=== PATIENT | female | born 1935 | race Two or more races ===

== ENCOUNTER 2018-02-10 12:18 | Emergency (ER) | payer MEDICARE, MEDICAID ==
[~2018-02-10] VITALS: Ht 165.1 cm; Wt 64.9 kg
[~2018-02-10 12:18] MED LIST: FURO20TA; LEVO100T81; MEGE40TA15; OMEP20TA; OXYB5TAB61; SIMV-13; [UNRECOGNIZED DRUG - CODE]
[2018-02-10] MEDS ORDERED: SODIUM CHLORIDE 0.9% 500 ML IV ONE (15:50)
[2018-02-10 16:27] LABS: Basophils # (auto) 0 uL; Basophils % (auto) 0.5 % (0.0-2.0); Eosinophils # (auto) 0.1 uL; Eosinophils % (auto) 0.8 % (0.0-7.0); Hematocrit 32.3 % (36.0-46.0); Hemoglobin 10.6 g/dL (12.2-16.2); Lymphocytes # (auto) 1.9 uL; Lymphocytes % (auto) 21.7 % (10.0-50.0); Mean Corpuscular Hgb Conc. 32.9 g/dL (32.0-36.0); Mean Corpuscular Volume 100.3 fL (80.0-100.0); Monocytes # (auto) 0.7 uL; Monocytes % (auto) 7.8 % (0.0-12.0); Neutrophils % (auto) 69.2 % (37.0-80.0); Platelet Count (auto) 227 10^3/uL (140-450); Red Blood Cells 3.22 10^6/uL (4.0-5.20); Red Cell Distribution Width 14.6 % (11.8-14.3); White Blood Cell 8.7 10^3/uL (4.4-10.8)
[2018-02-10 16:57] LABS: Potassium 3.7 mmol/L (3.5-5.1)
[2018-02-10 16:58] LABS: BUN/Creatinine Ratio 29.6
[2018-02-10 16:59] LABS: Albumin 3.2 g/dL (3.4-5.0); Bilirubin, Total 0.3 mg/dL (0.2-1.0); Calcium 8.8 mg/dL (8.5-10.1); Total Protein 8.5 g/dL (6.4-8.2)
[2018-02-10 17:10] LABS: Urine Bacteria MANY /hpf (None Seen); Urine Blood 1+ /uL (Negative); Urine Mucus FEW (None Seen); Urine Specific Gravity 1.018 (1.001-1.035); Urine WBC 63 /hpf (0 - 5)
[2018-02-10] MEDS ORDERED: cefTRIAXone 1GM/50ML D5W 50 ML IV ONE (18:30)
[2018-02-10 18:41] VITALS: BP 135/73
== END 2018-02-10 19:50 | disposition home or self-care (01) ==
LOC: ER 12:18
DX: N39.0 Urinary tract infection, site not specified (principal); K21.9 Gastro-esophageal reflux disease without esophagitis; E78.5 Hyperlipidemia, unspecified; I10 Essential (primary) hypertension; E07.9 Disorder of thyroid, unspecified; Z90.710 Acquired absence of both cervix and uterus
CPT/HCPCS: 36415; 51702; 80053; 81001; 85025; 93005; 94761; 99285; J7040

== ENCOUNTER 2020-10-21 19:32 | Emergency (ER) | payer MEDICARE, MEDICAID ==
[~2020-10-21] VITALS: Ht 160 cm; Wt 61.2 kg
[~2020-10-21 19:32] MED LIST changes: +FURO1TAB33; -FURO20TA; -MEGE40TA15; +MEGE40TA4
[2020-10-21 19:35] VITALS: BP 95/59
== END 2020-10-21 23:20 | disposition left against medical advice (07) ==
LOC: ER 19:34
DX: K94.23 Gastrostomy malfunction (principal); Z53.21 Procedure and treatment not carried out due to patient leaving prior to being seen by health care provider

== ENCOUNTER 2021-07-15 17:40 | Emergency (ER) | payer MEDICARE, MEDICAID ==
[~2021-07-15] VITALS: Ht 160 cm; Wt 63.5 kg
[2021-07-15 19:06] LABS: Alanine Aminotransferase 10 U/L (13-56); Anion Gap 8 (5-15); Aspartate Aminotransferase 30 U/L (15-37); BUN/Creatinine Ratio 31.5; Basophils # (auto) 0 10 ^3/uL (0-0.2); Basophils % (auto) 0.3 % (0.0-2.0); Blood Urea Nitrogen 29 mg/dL (7-18); Carbon Dioxide 25 mmol/L (21-32); Chloride 101 mmol/L (98-107); Eosinophils # (auto) 0.1 10 ^3/uL (0-0.8); Eosinophils % (auto) 1.3 % (0.0-7.0); GFR African American 75 mL/min; GFR Non-African American 62 mL/min; Glucose 108 mg/dL (74-106); Hematocrit 33.7 % (36.0-46.0); Hemoglobin 11.4 g/dL (12.2-16.2); Lymphocytes # (auto) 1.1 10 ^3/uL (0.4-5.4); Lymphocytes % (auto) 14.4 % (10.0-50.0); Mean Corpuscular Hemoglobin 32.6 pg (28.0-32.0); Mean Corpuscular Volume 95.9 fL (80.0-100.0); Monocytes # (auto) 0.6 10 ^3/uL (0-1.3); Monocytes % (auto) 7.5 % (0.0-12.0); Neutrophils # (auto) 5.6 10 ^3/uL (1.6-8.6); Neutrophils % (auto) 76.5 % (37.0-80.0); Nucleated Red Blood Cells % 0.1 %; Potassium 4.3 mmol/L (3.5-5.1); Red Blood Cells 3.51 10^6/uL (4.0-5.20); Red Cell Distribution Width 15.6 % (11.8-14.3); Sodium 134 mmol/L (136-145); White Blood Cell 7.3 10^3/uL (4.4-10.8)
[2021-07-15 19:08] LABS: Alkaline Phosphatase 146 U/L (45-117); Bilirubin, Total 0.4 mg/dL (0.2-1.0); Total Protein 7.9 g/dL (6.4-8.2)
[2021-07-15] MEDS ORDERED: LABETALOL HCL 5 MG/ML 4ML SYRINGE IV ONE (20:00)
[2021-07-15 22:00] VITALS: BP 152/70
[2021-07-15] MEDS ORDERED: cefTRIAXone 1GM/50ML D5W 50 ML IV ONE (22:45)
[2021-07-15] MEDS ORDERED: CEPH-322 PO (22:45)
== END 2021-07-15 23:34 | disposition home or self-care (01) ==
LOC: EDBD 17:40 → ER 17:40
DX: R55 Syncope and collapse (principal); I95.9 Hypotension, unspecified; N39.0 Urinary tract infection, site not specified
CPT/HCPCS: 36415; 71045; 80053; 84484; 85025; 93005; 96365

== ENCOUNTER 2022-01-30 12:34 | Inpatient (IN) | payer MEDICARE, MEDICAID ==
[~2022-01-30] VITALS: Ht 160 cm; Wt 62.8 kg
[~2022-01-30 12:34] MED LIST changes: +CEPH-322 PO; -FURO1TAB33; +FURO1TAB33 PO; -LEVO100T81; +LEVO100T81 PO
[2022-01-30] MEDS ORDERED: SODIUM CHLORIDE 0.9% 1,000 ML IV ONE (13:30)
[2022-01-30 14:15] LABS: Basophils # (auto) 0 10 ^3/uL (0-0.2); Basophils % (auto) 0.3 % (0.0-2.0); Eosinophils # (auto) 0.1 10 ^3/uL (0-0.8); Eosinophils % (auto) 0.8 % (0.0-7.0); Hemoglobin 9.3 g/dL (12.2-16.2); Lymphocytes # (auto) 1.7 10 ^3/uL (0.4-5.4); Lymphocytes % (auto) 23.3 % (10.0-50.0); Mean Corpuscular Hemoglobin 31.1 pg (28.0-32.0); Mean Corpuscular Hgb Conc. 33.3 g/dL (32.0-36.0); Mean Corpuscular Volume 93.4 fL (80.0-100.0); Monocytes # (auto) 1.1 10 ^3/uL (0-1.3); Monocytes % (auto) 15.2 % (0.0-12.0); Neutrophils # (auto) 4.3 10 ^3/uL (1.6-8.6); Neutrophils % (auto) 60.4 % (37.0-80.0); Nucleated Red Blood Cells % 0.1 %; Red Cell Distribution Width 16.7 % (11.8-14.3); White Blood Cell 7.2 10^3/uL (4.4-10.8)
[2022-01-30 14:34] LABS: Albumin 2.6 g/dL (3.4-5.0); Calcium 8.6 mg/dL (8.5-10.1); Magnesium 3.1 mg/dL (1.6-2.6); Potassium 4.9 mmol/L (3.5-5.1)
[2022-01-30 14:42] LABS: BUN/Creatinine Ratio 39.7; Bilirubin, Total 0.6 mg/dL (0.2-1.0); Total Protein 7.5 g/dL (6.4-8.2)
[2022-01-30 14:47] LABS: INR 0.97 (0.9-1.15); Partial Thromboplastin Time 38.7 sec (24.6-33.4)
[2022-01-30 18:54] LABS: Urine Bacteria NONE SEEN /hpf (None Seen); Urine WBC 2108 /hpf (0 - 5); Urine WBC Clumps PRESENT /hpf (None Seen)
[2022-01-30 18:57] LABS: Urine Blood 2+ /uL (Negative)
[2022-01-30] MEDS ORDERED: PIPERACILLIN-TAZOB 3.375GM 100 ML IV ONE (19:15)
[2022-01-30] MEDS ORDERED: cefTRIAXone 1GM/50ML D5W 50 ML IV ONE (21:00)
[2022-01-30] MEDS ORDERED: Glucerna 1.2 Cal 1Liter BOTTLE GT SCH (21:00)
[2022-01-30] MEDS ORDERED: MORPHINE SULFATE INJ 2 MG/ml SYRG IV PRN (21:15)
[2022-01-30 22:35] LABS: Cholesterol 118 mg/dL (< 200)
[2022-01-30 22:37] LABS: HDL Cholesterol 45 mg/dL (40-59); LDL Cholesterol 61 mg/dL (< 100); Triglycerides 101 mg/dL (< 150)
[2022-01-31] MEDS: SODIUM CHLORIDE 0.9% 1,000 ML IV SCH ×2 (00:18→13:50)
[2022-01-31 06:12] LABS: Basophils # (auto) 0 10 ^3/uL (0-0.2); Basophils % (auto) 0.3 % (0.0-2.0); Eosinophils # (auto) 0 10 ^3/uL (0-0.8); Eosinophils % (auto) 0.2 % (0.0-7.0); Hematocrit 31.4 % (36.0-46.0); Hemoglobin 10.6 g/dL (12.2-16.2); Lymphocytes # (auto) 1.5 10 ^3/uL (0.4-5.4); Lymphocytes % (auto) 24.7 % (10.0-50.0); Mean Corpuscular Hemoglobin 32.2 pg (28.0-32.0); Mean Corpuscular Hgb Conc. 33.7 g/dL (32.0-36.0); Mean Corpuscular Volume 95.7 fL (80.0-100.0); Monocytes % (auto) 17.4 % (0.0-12.0); Neutrophils # (auto) 3.4 10 ^3/uL (1.6-8.6); Neutrophils % (auto) 57.4 % (37.0-80.0); Nucleated Red Blood Cells % 0.1 %; Red Blood Cells 3.28 10^6/uL (4.0-5.20); Red Cell Distribution Width 16.8 % (11.8-14.3)
[2022-01-31] MEDS ORDERED: cefTRIAXone 1GM/50ML D5W 50 ML IV SCH (09:00)
[2022-01-31] MEDS ORDERED: ERTAPENEM SOD INJ 1 GM in SODIUM CHL 0.9% 50 ML IV ONE (13:45)
[2022-01-31] MEDS ORDERED: ASPI-325 PO (18:56)
[2022-01-31] MEDS ORDERED: CARB25TA79 PO (18:56)
[2022-01-31] MEDS ORDERED: MELO1TAB56 PO (18:56)
[2022-01-31] MEDS ORDERED: LINA145C PO (18:56)
[2022-01-31] MEDS ORDERED: ROPI0.254 PO (18:56)
[2022-01-31] MEDS ORDERED: MET25T PO (18:56)
[2022-01-31] MEDS ORDERED: PANT40TA57 PO (18:56)
[2022-01-31] MEDS ORDERED: VANCOMYCIN PER PHARMACY 0 MG IV SCH (20:00)
[2022-01-31] MEDS ORDERED: VANCOMYCIN 1GM/250ML 250 ML IV ONE (20:15)
[2022-01-31 22:00] VITALS: BP 146/71
[2022-02-01 05:00] VITALS: BP 116/60
[2022-02-01 05:59] LABS: Basophils # (auto) 0 10 ^3/uL (0-0.2); Basophils % (auto) 0.6 % (0.0-2.0); Eosinophils # (auto) 0.1 10 ^3/uL (0-0.8); Eosinophils % (auto) 2.4 % (0.0-7.0); Hematocrit 25.5 % (36.0-46.0); Hemoglobin 8.7 g/dL (12.2-16.2); Lymphocytes # (auto) 0.8 10 ^3/uL (0.4-5.4); Lymphocytes % (auto) 16.6 % (10.0-50.0); Monocytes # (auto) 0.6 10 ^3/uL (0-1.3); Monocytes % (auto) 12.9 % (0.0-12.0); Neutrophils # (auto) 3.2 10 ^3/uL (1.6-8.6); Neutrophils % (auto) 67.5 % (37.0-80.0); Nucleated Red Blood Cells % 0.1 %; Red Blood Cells 2.71 10^6/uL (4.0-5.20); Red Cell Distribution Width 17.2 % (11.8-14.3); White Blood Cell 4.8 10^3/uL (4.4-10.8)
[2022-02-01 06:03] LABS: Albumin 2.2 g/dL (3.4-5.0); Calcium 8.7 mg/dL (8.5-10.1); Potassium 3.4 mmol/L (3.5-5.1)
[2022-02-01 06:08] LABS: Bilirubin, Total 0.4 mg/dL (0.2-1.0); Total Protein 7.2 g/dL (6.4-8.2)
[2022-02-01] MEDS: LEVOTHYROXINE SODIUM 100 MCG TAB PO SCH (06:37)
[2022-02-01] MEDS: SODIUM CHLORIDE 0.9% 1,000 ML IV SCH ×2 (06:41→23:00)
[2022-02-01 09:22] VITALS: BP 120/62
[2022-02-01] MEDS: ERTAPENEM SOD INJ 0.5 GM in SODIUM CHL 0.9% 50 ML IV SCH (10:00)
[2022-02-01] MEDS: FAMOTIDINE (10MG/ML) 2ML VL IV SCH (10:03)
[2022-02-01] MEDS ORDERED: POTASSIUM EFFERVESENT TAB 25 MEQ GT ONE (12:00)
[2022-02-01 13:00] VITALS: BP 109/66
[2022-02-01 13:14] LABS: Hematocrit 26.4 % (36.0-46.0); Hemoglobin 8.9 g/dL (12.2-16.2)
[2022-02-01] MEDS: VANCOMYCIN 1GM/250ML 250 ML IV SCH (15:39)
[2022-02-01 17:52] VITALS: BP 134/73
[2022-02-01 18:04] LABS: Hematocrit 26.2 % (36.0-46.0); Hemoglobin 8.8 g/dL (12.2-16.2)
[2022-02-01 22:44] VITALS: BP 114/51
[2022-02-01 22:47] VITALS: BP 114/51
[2022-02-01 23:42] LABS: Hematocrit 25.5 % (36.0-46.0); Hemoglobin 8.6 g/dL (12.2-16.2)
[2022-02-02 05:30] VITALS: BP 141/59
[2022-02-02] MEDS: LEVOTHYROXINE SODIUM 100 MCG TAB PO SCH (06:08)
[2022-02-02] MEDS: FAMOTIDINE (10MG/ML) 2ML VL IV SCH (08:16)
[2022-02-02] MEDS: VANCOMYCIN 1GM/250ML 250 ML IV SCH (08:16)
[2022-02-02 09:00] VITALS: BP 151/68
[2022-02-02] MEDS: ERTAPENEM SOD INJ 0.5 GM in SODIUM CHL 0.9% 50 ML IV SCH (13:00)
[2022-02-02 13:13] VITALS: BP 162/77
[2022-02-02] MEDS ORDERED: ACETAMINOPHEN 325 MG TAB PO PRN (16:45)
[2022-02-02 17:55] VITALS: BP 152/60
[2022-02-02] MEDS: SODIUM CHLORIDE 0.9% 1,000 ML IV SCH (19:35)
[2022-02-02 22:15] VITALS: BP 127/98
[2022-02-03] MEDS: VANCOMYCIN 1GM/250ML 250 ML IV SCH (03:00)
[2022-02-03 05:56] VITALS: BP 144/69
[2022-02-03] MEDS: LEVOTHYROXINE SODIUM 100 MCG TAB PO SCH (06:25)
[2022-02-03 07:01] LABS: Basophils # (auto) 0.1 10 ^3/uL (0-0.2); Basophils % (auto) 1.1 % (0.0-2.0); Eosinophils # (auto) 0.3 10 ^3/uL (0-0.8); Eosinophils % (auto) 5.3 % (0.0-7.0); Hematocrit 29.4 % (36.0-46.0); Hemoglobin 9.8 g/dL (12.2-16.2); Lymphocytes # (auto) 1.3 10 ^3/uL (0.4-5.4); Lymphocytes % (auto) 27.7 % (10.0-50.0); Mean Corpuscular Hemoglobin 31.8 pg (28.0-32.0); Mean Corpuscular Hgb Conc. 33.5 g/dL (32.0-36.0); Monocytes # (auto) 0.7 10 ^3/uL (0-1.3); Monocytes % (auto) 13.7 % (0.0-12.0); Neutrophils # (auto) 2.5 10 ^3/uL (1.6-8.6); Neutrophils % (auto) 52.2 % (37.0-80.0); Nucleated Red Blood Cells % 0.6 %; Red Blood Cells 3.09 10^6/uL (4.0-5.20); Red Cell Distribution Width 16.8 % (11.8-14.3); White Blood Cell 4.8 10^3/uL (4.4-10.8)
[2022-02-03 07:13] LABS: Albumin 2.5 g/dL (3.4-5.0); BUN/Creatinine Ratio 31.2; Potassium 4.2 mmol/L (3.5-5.1)
[2022-02-03 07:21] LABS: Bilirubin, Total 0.5 mg/dL (0.2-1.0); Total Protein 6.9 g/dL (6.4-8.2)
[2022-02-03] MEDS: FAMOTIDINE (10MG/ML) 2ML VL IV SCH (09:37)
[2022-02-03] MEDS: SODIUM CHLORIDE 0.9% 1,000 ML IV SCH (09:41)
[2022-02-03] MEDS ORDERED: Glucerna 1.2 Cal 1Liter BOTTLE GT SCH (10:00)
[2022-02-03] MEDS: CIPROFLOXACIN 400MG/200ML 200 ML IV SCH ×2 (10:00→21:31)
[2022-02-03] MEDS: FREE WATER GT SCH ×3 (12:34→23:37)
[2022-02-03 13:00] VITALS: BP 138/83
[2022-02-03] MEDS: CARBIDOPA W LEVODOPA 25/100mg TABLET PO SCH ×2 (14:55→21:31)
[2022-02-03 17:00] VITALS: BP 148/78
[2022-02-03 22:00] VITALS: BP 151/84
[2022-02-04 05:00] VITALS: BP 135/77
[2022-02-04] MEDS: CARBIDOPA W LEVODOPA 25/100mg TABLET PO SCH (06:37)
[2022-02-04] MEDS: FREE WATER GT SCH ×2 (06:38→12:46)
[2022-02-04] MEDS: LEVOTHYROXINE SODIUM 100 MCG TAB PO SCH (06:38)
[2022-02-04 07:29] LABS: Hematocrit 28.8 % (36.0-46.0); Hemoglobin 9.7 g/dL (12.2-16.2); Mean Corpuscular Hemoglobin 31.9 pg (28.0-32.0); Mean Corpuscular Hgb Conc. 33.6 g/dL (32.0-36.0); Mean Corpuscular Volume 94.8 fL (80.0-100.0); Red Blood Cells 3.04 10^6/uL (4.0-5.20); Red Cell Distribution Width 16.9 % (11.8-14.3); White Blood Cell 5.7 10^3/uL (4.4-10.8)
[2022-02-04 07:35] LABS: Basophils % (manual) 0 (0.0-2.0); Blast Cells 0; Myelocytes % 0; Promyelocytes % 0; Reactive Lymphocytes 0
[2022-02-04 08:19] LABS: BUN/Creatinine Ratio 35.3; Calcium 8.8 mg/dL (8.5-10.1); Potassium 3.9 mmol/L (3.5-5.1)
[2022-02-04 08:47] LABS: Band Neutrophils % (manual) 14; Eosinophils % (manual) 3 (0-7); Lymphocytes % (manual) 21 (10.0-50.0); Metamyelocytes % 3; Monocytes % (manual) 10 (0-12)
[2022-02-04 09:00] VITALS: BP 136/58
[2022-02-04] MEDS: CIPROFLOXACIN 400MG/200ML 200 ML IV SCH (09:32)
[2022-02-04] MEDS: FAMOTIDINE (10MG/ML) 2ML VL IV SCH (09:32)
[2022-02-04] MEDS ORDERED: CIPR500S2 PO (10:21)
[2022-02-04 11:27] VITALS: BP 110/65
== END 2022-02-04 13:34 | disposition home health service (06) | DRG 871 ==
LOC: ER 12:34 → OVERFLOW 21:03 → CENTRAL 01-31 18:29
PROVIDERS: ADMIT Registered Nurse; ATTEND Internal Medicine
DX: A41.52 Sepsis due to Pseudomonas (principal); E43 Unspecified severe protein-calorie malnutrition; N17.0 Acute kidney failure with tubular necrosis; N13.6 Pyonephrosis; E78.5 Hyperlipidemia, unspecified; E27.9 Disorder of adrenal gland, unspecified; F02.80 Dementia in other diseases classified elsewhere, unspecified severity, without behavioral disturbance, psychotic disturbance, mood disturbance, and anxiety; G30.9 Alzheimer's disease, unspecified; I10 Essential (primary) hypertension; E66.01 Morbid (severe) obesity due to excess calories; G20 Parkinson's disease; E03.9 Hypothyroidism, unspecified; R55 Syncope and collapse; Z20.822 Contact with and (suspected) exposure to COVID-19; E87.6 Hypokalemia; D63.8 Anemia in other chronic diseases classified elsewhere; K21.9 Gastro-esophageal reflux disease without esophagitis; N31.9 Neuromuscular dysfunction of bladder, unspecified; N28.89 Other specified disorders of kidney and ureter; Z90.710 Acquired absence of both cervix and uterus; Z93.1 Gastrostomy status; Z68.23 Body mass index [BMI] 23.0-23.9, adult; Z79.82 Long term (current) use of aspirin; Z79.899 Other long term (current) drug therapy; Z87.440 Personal history of urinary (tract) infections
CPT/HCPCS: 36415; 71045; 71250; 74176; 76775; 80048; 80053; 80061; 80202; 81001; 83036; 83605; 83735; 83880; 84443; 84484; 85007; 85014; 85018; 85025; 85027; 85610; 85730; 87040; 87077; 87086; 87088; 87186; 87426; 87804; 96365; 96367; G0378; J0696; J1335; J2543; J3490

== ENCOUNTER 2022-03-14 12:00 | Inpatient (IN) | payer MEDICARE, MEDICAID ==
[~2022-03-14] VITALS: Ht 162.6 cm; Wt 73.2 kg
[~2022-03-14 12:00] MED LIST changes: +ASPI-325 PO; +CARB25TA79 PO; +CIPR500S2 PO; +LINA145C PO; +MELO1TAB56 PO; +MET25T PO; +PANT40TA57 PO; +ROPI0.254 PO
[2022-03-14 13:29] LABS: Basophils # (auto) 0 10 ^3/uL (0-0.2); Basophils % (auto) 0.3 % (0.0-2.0); Eosinophils # (auto) 0 10 ^3/uL (0-0.8); Eosinophils % (auto) 0.3 % (0.0-7.0); Hematocrit 36.5 % (36.0-46.0); Hemoglobin 11.9 g/dL (12.2-16.2); Lymphocytes % (auto) 14.6 % (10.0-50.0); Mean Corpuscular Hgb Conc. 32.7 g/dL (32.0-36.0); Mean Corpuscular Volume 94.8 fL (80.0-100.0); Monocytes # (auto) 1.2 10 ^3/uL (0-1.3); Monocytes % (auto) 8.6 % (0.0-12.0); Neutrophils # (auto) 10.6 10 ^3/uL (1.6-8.6); Neutrophils % (auto) 76.2 % (37.0-80.0); Nucleated Red Blood Cells % 0.1 %; Red Blood Cells 3.85 10^6/uL (4.0-5.20); Red Cell Distribution Width 19.9 % (11.8-14.3); White Blood Cell 13.9 10^3/uL (4.4-10.8)
[2022-03-14 14:11] LABS: Albumin 2.8 g/dL (3.4-5.0); Calcium 8.7 mg/dL (8.5-10.1); Potassium 4.8 mmol/L (3.5-5.1)
[2022-03-14 14:13] LABS: Lactic Acid w/Reflex 2.2 mmol/L (0.4-2.0)
[2022-03-14 14:14] LABS: BUN/Creatinine Ratio 43.9; Bilirubin, Total 0.7 mg/dL (0.2-1.0); Total Protein 7.4 g/dL (6.4-8.2)
[2022-03-14] MEDS ORDERED: cefTRIAXone 1GM/50ML D5W 50 ML IV ONE (14:15)
[2022-03-14] MEDS ORDERED: SODIUM CHLORIDE 0.9% 1,000 ML IV ONE (17:30)
[2022-03-14] MEDS ORDERED: ONDANSETRON HCL 4 MG/2 ML VIAL IV PRN (17:30)
[2022-03-14] MEDS ORDERED: levoFLOXacin 500MG 100 ML IV ONE (17:49)
[2022-03-14] MEDS: SODIUM CHLORIDE 0.9% 1,000 ML IV SCH (21:10)
[2022-03-15 00:25] LABS: Urine Bacteria FEW /hpf (None Seen); Urine Blood TRACE /uL (Negative); Urine Mucus FEW (None Seen); Urine Specific Gravity 1.018 (1.001-1.035); Urine WBC 274 /hpf (0 - 5); Urine WBC Clumps PRESENT /hpf (None Seen)
[2022-03-15 07:54] LABS: Basophils # (auto) 0 10 ^3/uL (0-0.2); Basophils % (auto) 0.3 % (0.0-2.0); Eosinophils # (auto) 0 10 ^3/uL (0-0.8); Eosinophils % (auto) 0.3 % (0.0-7.0); Hematocrit 31.5 % (36.0-46.0); Hemoglobin 10.3 g/dL (12.2-16.2); Lymphocytes # (auto) 1.4 10 ^3/uL (0.4-5.4); Lymphocytes % (auto) 10.3 % (10.0-50.0); Mean Corpuscular Hemoglobin 30.8 pg (28.0-32.0); Mean Corpuscular Hgb Conc. 32.7 g/dL (32.0-36.0); Mean Corpuscular Volume 94.2 fL (80.0-100.0); Monocytes # (auto) 0.8 10 ^3/uL (0-1.3); Monocytes % (auto) 6.2 % (0.0-12.0); Neutrophils # (auto) 11.2 10 ^3/uL (1.6-8.6); Neutrophils % (auto) 82.9 % (37.0-80.0); Red Blood Cells 3.35 10^6/uL (4.0-5.20); Red Cell Distribution Width 19.8 % (11.8-14.3); White Blood Cell 13.6 10^3/uL (4.4-10.8)
[2022-03-15 08:15] LABS: Albumin 2.4 g/dL (3.4-5.0); Calcium 8.6 mg/dL (8.5-10.1); Potassium 4.6 mmol/L (3.5-5.1)
[2022-03-15 08:19] LABS: BUN/Creatinine Ratio 48.8; Bilirubin, Total 0.6 mg/dL (0.2-1.0); Total Protein 6.9 g/dL (6.4-8.2)
[2022-03-15] MEDS: PANTOPRAZOLE 40 MG/10 ML VIAL INJ IV SCH (10:00)
[2022-03-15] MEDS: ENOXAPARIN SOD 40 MG/0.4 ML SYRINGE SC SCH (10:15)
[2022-03-15] MEDS: SODIUM CHLORIDE 0.9% 1,000 ML IV SCH ×2 (12:22→22:06)
[2022-03-15] MEDS ORDERED: NYSTATIN (MOUTH-THROAT) 500,000 UNITS/5 ML SUSP MT ONE (15:00)
[2022-03-15] MEDS: Jevity 1.2 Cal/Fiber 1 Liter GT SCH (18:00)
[2022-03-15] MEDS ORDERED: levoFLOXacin 250MG 50 ML IV SCH (18:00)
[2022-03-15 18:46] VITALS: BP 116/63
[2022-03-15] MEDS: PIPERACILLIN-TAZOB 3.375GM 100 ML IV SCH (19:56)
[2022-03-15] MEDS: NYSTATIN (MOUTH-THROAT) 500,000 UNITS/5 ML SUSP MT SCH (19:57)
[2022-03-15 22:00] VITALS: BP 126/65
[2022-03-16] VITALS (7 sets, daily range): BP systolic 106–132; BP diastolic 61–73
[2022-03-16] MEDS: Jevity 1.2 Cal/Fiber 1 Liter GT SCH ×7 (00:32→22:23)
[2022-03-16] MEDS: NYSTATIN (MOUTH-THROAT) 500,000 UNITS/5 ML SUSP MT SCH ×5 (00:32→22:29)
[2022-03-16] MEDS: PIPERACILLIN-TAZOB 3.375GM 100 ML IV SCH ×4 (02:40→17:21)
[2022-03-16 06:27] LABS: BUN/Creatinine Ratio 39.6; Calcium 8.2 mg/dL (8.5-10.1); Potassium 4.3 mmol/L (3.5-5.1)
[2022-03-16 06:57] LABS: Basophils # (auto) 0 10 ^3/uL (0-0.2); Basophils % (auto) 0.3 % (0.0-2.0); Eosinophils # (auto) 0.2 10 ^3/uL (0-0.8); Eosinophils % (auto) 3.1 % (0.0-7.0); Hematocrit 29.9 % (36.0-46.0); Hemoglobin 9.6 g/dL (12.2-16.2); Lymphocytes # (auto) 1.4 10 ^3/uL (0.4-5.4); Lymphocytes % (auto) 17.7 % (10.0-50.0); Mean Corpuscular Hemoglobin 30.5 pg (28.0-32.0); Mean Corpuscular Volume 95.2 fL (80.0-100.0); Monocytes # (auto) 0.6 10 ^3/uL (0-1.3); Monocytes % (auto) 7.5 % (0.0-12.0); Neutrophils # (auto) 5.8 10 ^3/uL (1.6-8.6); Neutrophils % (auto) 71.4 % (37.0-80.0); Red Blood Cells 3.14 10^6/uL (4.0-5.20); Red Cell Distribution Width 19.4 % (11.8-14.3); White Blood Cell 8.1 10^3/uL (4.4-10.8)
[2022-03-16] MEDS: PANTOPRAZOLE 40 MG/10 ML VIAL INJ IV SCH (09:42)
[2022-03-16] MEDS: ENOXAPARIN SOD 40 MG/0.4 ML SYRINGE SC SCH (09:42)
[2022-03-16] MEDS: SODIUM CHLORIDE 0.9% 1,000 ML IV SCH ×2 (12:24→17:20)
[2022-03-16 19:10] LABS: Hematocrit 30.9 % (36.0-46.0); Hemoglobin 9.9 g/dL (12.2-16.2); Mean Corpuscular Hemoglobin 30.9 pg (28.0-32.0); Mean Corpuscular Hgb Conc. 32.2 g/dL (32.0-36.0); Mean Corpuscular Volume 96.2 fL (80.0-100.0); Red Blood Cells 3.21 10^6/uL (4.0-5.20); Red Cell Distribution Width 19.3 % (11.8-14.3); White Blood Cell 6.5 10^3/uL (4.4-10.8)
[2022-03-16 19:15] LABS: Basophils % (manual) 0 (0.0-2.0); Blast Cells 0; Metamyelocytes % 0; Myelocytes % 0; Promyelocytes % 0
[2022-03-16 19:24] LABS: INR 0.92 (0.9-1.15); Partial Thromboplastin Time 39.9 sec (24.6-33.4)
[2022-03-16 21:05] LABS: Band Neutrophils % (manual) 32; Eosinophils % (manual) 5 (0-7); Lymphocytes % (manual) 18 (10.0-50.0); Monocytes % (manual) 3 (0-12); Reactive Lymphocytes 1
[2022-03-17] VITALS (7 sets, daily range): BP systolic 120–162; BP diastolic 61–88
[2022-03-17] MEDS: Jevity 1.2 Cal/Fiber 1 Liter GT SCH ×6 (02:13→22:03)
[2022-03-17] MEDS: SODIUM CHLORIDE 0.9% 1,000 ML IV SCH ×2 (03:00→13:40)
[2022-03-17] MEDS: NYSTATIN (MOUTH-THROAT) 500,000 UNITS/5 ML SUSP MT SCH ×4 (05:38→22:04)
[2022-03-17] MEDS: PIPERACILLIN-TAZOB 3.375GM 100 ML IV SCH ×4 (05:39→18:52)
[2022-03-17 06:44] LABS: Basophils # (auto) 0.1 10 ^3/uL (0-0.2); Eosinophils # (auto) 0.4 10 ^3/uL (0-0.8); Eosinophils % (auto) 7.8 % (0.0-7.0); Hematocrit 29.8 % (36.0-46.0); Hemoglobin 9.6 g/dL (12.2-16.2); Lymphocytes # (auto) 1.2 10 ^3/uL (0.4-5.4); Mean Corpuscular Hemoglobin 30.6 pg (28.0-32.0); Mean Corpuscular Hgb Conc. 32.2 g/dL (32.0-36.0); Mean Corpuscular Volume 95.1 fL (80.0-100.0); Monocytes # (auto) 0.6 10 ^3/uL (0-1.3); Monocytes % (auto) 11.2 % (0.0-12.0); Neutrophils # (auto) 3.1 10 ^3/uL (1.6-8.6); Red Blood Cells 3.13 10^6/uL (4.0-5.20); Red Cell Distribution Width 19.5 % (11.8-14.3); White Blood Cell 5.4 10^3/uL (4.4-10.8)
[2022-03-17 07:02] LABS: BUN/Creatinine Ratio 34.2; Calcium 8.2 mg/dL (8.5-10.1); Potassium 4.4 mmol/L (3.5-5.1)
[2022-03-17] MEDS ORDERED: PANTOPRAZOLE 40 MG TAB PO ONE (15:45)
[2022-03-17] MEDS: CARBIDOPA W LEVODOPA 25/250mg TABLET GT SCH ×2 (17:12→22:04)
[2022-03-18] MEDS: PIPERACILLIN-TAZOB 3.375GM 100 ML IV SCH ×4 (00:26→19:03)
[2022-03-18] MEDS: Jevity 1.2 Cal/Fiber 1 Liter GT SCH ×6 (02:09→23:00)
[2022-03-18 05:00] VITALS: BP 115/75
[2022-03-18 05:42] LABS: Basophils # (auto) 0.1 10 ^3/uL (0-0.2); Basophils % (auto) 0.8 % (0.0-2.0); Eosinophils # (auto) 0.3 10 ^3/uL (0-0.8); Eosinophils % (auto) 4.4 % (0.0-7.0); Hematocrit 31.5 % (36.0-46.0); Hemoglobin 10.5 g/dL (12.2-16.2); Lymphocytes # (auto) 1.8 10 ^3/uL (0.4-5.4); Lymphocytes % (auto) 23.9 % (10.0-50.0); Mean Corpuscular Hemoglobin 31.6 pg (28.0-32.0); Mean Corpuscular Hgb Conc. 33.2 g/dL (32.0-36.0); Mean Corpuscular Volume 95.1 fL (80.0-100.0); Monocytes # (auto) 0.9 10 ^3/uL (0-1.3); Monocytes % (auto) 11.5 % (0.0-12.0); Neutrophils # (auto) 4.5 10 ^3/uL (1.6-8.6); Neutrophils % (auto) 59.4 % (37.0-80.0); Red Blood Cells 3.31 10^6/uL (4.0-5.20); Red Cell Distribution Width 19.1 % (11.8-14.3); White Blood Cell 7.5 10^3/uL (4.4-10.8)
[2022-03-18] MEDS: NYSTATIN (MOUTH-THROAT) 500,000 UNITS/5 ML SUSP MT SCH ×4 (06:02→23:00)
[2022-03-18] MEDS: CARBIDOPA W LEVODOPA 25/250mg TABLET GT SCH ×3 (06:03→23:00)
[2022-03-18 06:08] LABS: Calcium 8.6 mg/dL (8.5-10.1); Potassium 4.6 mmol/L (3.5-5.1)
[2022-03-18 06:10] LABS: BUN/Creatinine Ratio 44.4
[2022-03-18] MEDS: LEVOTHYROXINE SODIUM 100 MCG TAB PO SCH (06:36)
[2022-03-18 08:00] VITALS: BP 136/80
[2022-03-18 09:09] VITALS: BP 136/80
[2022-03-18] MEDS: PANTOPRAZOLE 40 MG TAB PO SCH (09:41)
[2022-03-18] MEDS: ASPirin 81 mg TAB PO SCH (09:41)
[2022-03-18 12:56] VITALS: BP 124/84
[2022-03-18 16:41] VITALS: BP 141/84
[2022-03-18 22:00] VITALS: BP 123/58
[2022-03-19] MEDS: Jevity 1.2 Cal/Fiber 1 Liter GT SCH ×6 (03:18→22:26)
[2022-03-19 05:00] VITALS: BP 144/65
[2022-03-19 05:55] LABS: Hematocrit 34.4 % (36.0-46.0); Mean Corpuscular Hemoglobin 30.4 pg (28.0-32.0); Mean Corpuscular Hgb Conc. 31.9 g/dL (32.0-36.0); Mean Corpuscular Volume 95.5 fL (80.0-100.0); Red Cell Distribution Width 19.7 % (11.8-14.3); White Blood Cell 8.5 10^3/uL (4.4-10.8)
[2022-03-19 06:03] LABS: BUN/Creatinine Ratio 42.3; Calcium 8.8 mg/dL (8.5-10.1); Potassium 4.5 mmol/L (3.5-5.1)
[2022-03-19 06:06] LABS: Basophils % (manual) 0 (0.0-2.0); Blast Cells 0; Myelocytes % 0; Promyelocytes % 0; Reactive Lymphocytes 0
[2022-03-19] MEDS: PIPERACILLIN-TAZOB 3.375GM 100 ML IV SCH ×3 (06:34→13:32)
[2022-03-19] MEDS: CARBIDOPA W LEVODOPA 25/250mg TABLET GT SCH ×3 (06:34→21:51)
[2022-03-19] MEDS: NYSTATIN (MOUTH-THROAT) 500,000 UNITS/5 ML SUSP MT SCH ×4 (06:34→21:51)
[2022-03-19] MEDS: LEVOTHYROXINE SODIUM 100 MCG TAB PO SCH (06:34)
[2022-03-19 08:32] VITALS: BP 95/57
[2022-03-19 09:04] LABS: Band Neutrophils % (manual) 5; Eosinophils % (manual) 10 (0-7); Lymphocytes % (manual) 30 (10.0-50.0); Metamyelocytes % 1; Monocytes % (manual) 4 (0-12)
[2022-03-19] MEDS: ASPirin 81 mg TAB PO SCH (10:22)
[2022-03-19] MEDS: PANTOPRAZOLE 40 MG TAB PO SCH (10:22)
[2022-03-19 12:41] VITALS: BP 113/68
[2022-03-19] MEDS: ERTAPENEM SOD INJ 1 GM in SODIUM CHL 0.9% 50 ML IV SCH (16:15)
[2022-03-19 16:25] VITALS: BP 109/68
[2022-03-19] MEDS: LINEZOLID 600MG/300ML 300 ML IV SCH (21:51)
[2022-03-19 22:00] VITALS: BP 136/77
[2022-03-20] MEDS: Jevity 1.2 Cal/Fiber 1 Liter GT SCH ×4 (02:24→14:00)
[2022-03-20 05:00] VITALS: BP 134/68
[2022-03-20 05:27] LABS: Hematocrit 33.4 % (36.0-46.0); Mean Corpuscular Hemoglobin 31.6 pg (28.0-32.0); Mean Corpuscular Volume 95.7 fL (80.0-100.0); Red Blood Cells 3.49 10^6/uL (4.0-5.20); Red Cell Distribution Width 19.5 % (11.8-14.3)
[2022-03-20 05:39] LABS: BUN/Creatinine Ratio 50.7; Calcium 8.6 mg/dL (8.5-10.1); Potassium 4.8 mmol/L (3.5-5.1)
[2022-03-20] MEDS: CARBIDOPA W LEVODOPA 25/250mg TABLET GT SCH ×2 (06:23→15:05)
[2022-03-20] MEDS: NYSTATIN (MOUTH-THROAT) 500,000 UNITS/5 ML SUSP MT SCH ×2 (06:24→12:00)
[2022-03-20] MEDS: LEVOTHYROXINE SODIUM 100 MCG TAB PO SCH (06:24)
[2022-03-20 06:55] LABS: Basophils % (manual) 0 (0.0-2.0); Blast Cells 0; Myelocytes % 0; Promyelocytes % 0; Reactive Lymphocytes 0
[2022-03-20 08:32] VITALS: BP 99/59
[2022-03-20 09:25] LABS: Band Neutrophils % (manual) 3; Eosinophils % (manual) 8 (0-7); Lymphocytes % (manual) 19 (10.0-50.0); Metamyelocytes % 4; Monocytes % (manual) 9 (0-12)
[2022-03-20] MEDS: ERTAPENEM SOD INJ 1 GM in SODIUM CHL 0.9% 50 ML IV SCH (10:35)
[2022-03-20] MEDS: ASPirin 81 mg TAB PO SCH (10:36)
[2022-03-20] MEDS: LINEZOLID 600MG/300ML 300 ML IV SCH (10:36)
[2022-03-20] MEDS: PANTOPRAZOLE 40 MG TAB PO SCH (10:36)
[2022-03-20 12:32] VITALS: BP 117/71
[2022-03-20] MEDS ORDERED: CEFEPIME 2 GM in SODIUM CHL 0.9% 50 ML IV SCH (13:00)
[2022-03-20] MEDS ORDERED: LINE1TAB6 PO (14:29)
[2022-03-20 15:33] VITALS: BP 117/71
== END 2022-03-20 16:40 | disposition home health service (06) | DRG 871 ==
LOC: ER 12:00 → OVERFLOW 17:34 → WEST WING 03-15 18:47
PROVIDERS: ADMIT Nurse Practitioner Family; ATTEND Nurse Practitioner Acute Care
PROC: 05HA33Z Insertion of Infusion Device into Left Brachial Vein, Percutaneous Approach (ICD-10-PCS; principal; 2022-03-20)
PROC: B54NZZA Ultrasonography of Left Upper Extremity Veins, Guidance (ICD-10-PCS; 2022-03-20)
DX: A41.52 Sepsis due to Pseudomonas (principal); G93.41 Metabolic encephalopathy; B37.0 Candidal stomatitis; D62 Acute posthemorrhagic anemia; E44.1 Mild protein-calorie malnutrition; E87.1 Hypo-osmolality and hyponatremia; J98.11 Atelectasis; Z16.24 Resistance to multiple antibiotics; Z20.822 Contact with and (suspected) exposure to COVID-19; E86.0 Dehydration; R65.20 Severe sepsis without septic shock; E88.09 Other disorders of plasma-protein metabolism, not elsewhere classified; G30.9 Alzheimer's disease, unspecified; E78.5 Hyperlipidemia, unspecified; F02.80 Dementia in other diseases classified elsewhere, unspecified severity, without behavioral disturbance, psychotic disturbance, mood disturbance, and anxiety; G20 Parkinson's disease; I11.0 Hypertensive heart disease with heart failure; I50.9 Heart failure, unspecified; N30.90 Cystitis, unspecified without hematuria; Z87.442 Personal history of urinary calculi; Z90.710 Acquired absence of both cervix and uterus; Z93.1 Gastrostomy status; Z68.21 Body mass index [BMI] 21.0-21.9, adult
CPT/HCPCS: 36415; 71045; 74176; 80048; 80053; 81001; 82270; 83605; 83880; 84484; 85007; 85025; 85027; 85610; 85730; 87040; 87086; 87088; 87186; 87426; 96365; 96367; 96372; 96375; C9113; G0378; J0696; J1335; J1956; J2543

== ENCOUNTER 2022-04-17 18:33 | Emergency (ER) | payer MEDICARE, MEDICAID ==
[~2022-04-17] VITALS: Ht 147.3 cm; Wt 54.0 kg
[~2022-04-17 18:33] MED LIST changes: +LINE1TAB6 PO
[2022-04-17 18:40] VITALS: BP 131/70
== END 2022-04-17 19:58 | disposition home or self-care (01) ==
LOC: ER 18:33
DX: I11.0 Hypertensive heart disease with heart failure (principal); I50.9 Heart failure, unspecified; K21.9 Gastro-esophageal reflux disease without esophagitis; E78.5 Hyperlipidemia, unspecified; Z45.2 Encounter for adjustment and management of vascular access device

== ENCOUNTER 2022-04-18 16:14 | Inpatient (IN) | payer MEDICARE, MEDICAID ==
[~2022-04-18] VITALS: Ht 165.1 cm; Wt 62.3 kg
[2022-04-18] MEDS ORDERED: SODIUM CHLORIDE 0.9% 1,000 ML IV ONE (16:30)
[2022-04-18 17:15] LABS: Basophils # (auto) 0 10 ^3/uL (0-0.2); Basophils % (auto) 0.2 % (0.0-2.0); Eosinophils # (auto) 0.1 10 ^3/uL (0-0.8); Eosinophils % (auto) 0.4 % (0.0-7.0); Hematocrit 33.5 % (36.0-46.0); Lymphocytes # (auto) 1.1 10 ^3/uL (0.4-5.4); Lymphocytes % (auto) 5.3 % (10.0-50.0); Mean Corpuscular Hemoglobin 32.6 pg (28.0-32.0); Mean Corpuscular Hgb Conc. 32.8 g/dL (32.0-36.0); Mean Corpuscular Volume 99.5 fL (80.0-100.0); Monocytes % (auto) 4.6 % (0.0-12.0); Neutrophils # (auto) 18.8 10 ^3/uL (1.6-8.6); Neutrophils % (auto) 89.5 % (37.0-80.0); Nucleated Red Blood Cells % 0.1 %; Red Blood Cells 3.36 10^6/uL (4.0-5.20)
[2022-04-18 17:17] LABS: Red Cell Distribution Width 22.3 % (11.8-14.3)
[2022-04-18] MEDS ORDERED: cefTRIAXone 1GM/50ML D5W 50 ML IV ONE (17:30)
[2022-04-18 17:33] LABS: Albumin 2.9 g/dL (3.4-5.0); BUN/Creatinine Ratio 37.3; Calcium 8.7 mg/dL (8.5-10.1)
[2022-04-18 17:36] LABS: Bilirubin, Total 0.6 mg/dL (0.2-1.0); Total Protein 7.6 g/dL (6.4-8.2)
[2022-04-18 18:48] LABS: Urine Amorphous Crystal FEW /hpf (None Seen); Urine Bacteria FEW /hpf (None Seen); Urine Blood 2+ /uL (Negative); Urine Specific Gravity 1.019 (1.001-1.035); Urine WBC 858 /hpf (0 - 5); Urine WBC Clumps PRESENT /hpf (None Seen)
[2022-04-18 18:51] LABS: Lactic Acid w/Reflex 2.1 mmol/L (0.4-2.0)
[2022-04-18] MEDS ORDERED: ONDANSETRON HCL 4 MG/2 ML VIAL IV PRN (19:15)
[2022-04-18] MEDS ORDERED: NITROGLYCERIN 0.4 MG SL TAB SL PRN (19:15)
[2022-04-18] MEDS ORDERED: SODIUM CHLORIDE 0.9% 1,000 ML IV SCH (19:15)
[2022-04-18] MEDS ORDERED: MORPHINE SULFATE INJ 2 MG/ml SYRG IV PRN (19:15)
[2022-04-18] MEDS: MEROPENEM 1GM IVPB 100 ML IV SCH (23:14)
[2022-04-19 06:25] LABS: Basophils # (auto) 0 10 ^3/uL (0-0.2); Basophils % (auto) 0.4 % (0.0-2.0); Eosinophils # (auto) 0.1 10 ^3/uL (0-0.8); Eosinophils % (auto) 1.5 % (0.0-7.0); Hematocrit 27.6 % (36.0-46.0); Hemoglobin 9.1 g/dL (12.2-16.2); Lymphocytes # (auto) 1.7 10 ^3/uL (0.4-5.4); Lymphocytes % (auto) 19.1 % (10.0-50.0); Mean Corpuscular Hemoglobin 32.6 pg (28.0-32.0); Mean Corpuscular Hgb Conc. 33.1 g/dL (32.0-36.0); Mean Corpuscular Volume 98.7 fL (80.0-100.0); Monocytes # (auto) 0.5 10 ^3/uL (0-1.3); Monocytes % (auto) 5.6 % (0.0-12.0); Neutrophils # (auto) 6.7 10 ^3/uL (1.6-8.6); Neutrophils % (auto) 73.4 % (37.0-80.0); Nucleated Red Blood Cells % 0.2 %; Red Blood Cells 2.79 10^6/uL (4.0-5.20); Red Cell Distribution Width 22.7 % (11.8-14.3); White Blood Cell 9.1 10^3/uL (4.4-10.8)
[2022-04-19 06:30] LABS: Albumin 2.4 g/dL (3.4-5.0); Potassium 4.1 mmol/L (3.5-5.1)
[2022-04-19 06:34] LABS: BUN/Creatinine Ratio 37.7; Bilirubin, Total 0.4 mg/dL (0.2-1.0); Total Protein 6.5 g/dL (6.4-8.2)
[2022-04-19] MEDS ORDERED: cefTRIAXone 1GM/50ML D5W 50 ML IV SCH (09:00)
[2022-04-19] MEDS: PANTOPRAZOLE 40 MG/10 ML VIAL INJ IV SCH (10:28)
[2022-04-19] MEDS: MEROPENEM 1GM IVPB 100 ML IV SCH ×2 (10:28→23:45)
[2022-04-20 05:00] VITALS: BP 110/62
[2022-04-20 05:35] LABS: Hemoglobin 9.8 g/dL (12.2-16.2); White Blood Cell 5.6 10^3/uL (4.4-10.8)
[2022-04-20 05:39] LABS: Mean Corpuscular Hemoglobin 33.2 pg (28.0-32.0); Mean Corpuscular Hgb Conc. 32.5 g/dL (32.0-36.0); Mean Corpuscular Volume 102.1 fL (80.0-100.0); Red Blood Cells 2.94 10^6/uL (4.0-5.20)
[2022-04-20 05:57] LABS: Red Cell Distribution Width 22.5 % (11.8-14.3)
[2022-04-20 05:58] LABS: Basophils % (manual) 0 (0.0-2.0); Blast Cells 0; Metamyelocytes % 0; Myelocytes % 0; Promyelocytes % 0; Reactive Lymphocytes 0
[2022-04-20 06:00] LABS: Calcium 8.8 mg/dL (8.5-10.1); Potassium 4.2 mmol/L (3.5-5.1)
[2022-04-20 07:08] LABS: Band Neutrophils % (manual) 3; Eosinophils % (manual) 1 (0-7); Lymphocytes % (manual) 35 (10.0-50.0); Monocytes % (manual) 5 (0-12)
[2022-04-20 09:00] VITALS: BP 120/73
[2022-04-20] MEDS: PANTOPRAZOLE 40 MG/10 ML VIAL INJ IV SCH (10:25)
[2022-04-20] MEDS: MEROPENEM 1GM IVPB 100 ML IV SCH ×2 (10:26→21:48)
[2022-04-20] MEDS: Jevity 1.2 Cal/Fiber 1 Liter GT SCH (10:31)
[2022-04-20] MEDS: OXYBUTYNIN CHL 5 MG TAB GT SCH (11:15)
[2022-04-20] MEDS ORDERED: ACETAMINOPHEN 650 mg PER 20.3 mL UD GT PRN (11:15)
[2022-04-20 12:41] VITALS: BP 135/78
[2022-04-20] MEDS: Ropinirole Hydrochloride (Ropinirole Hcl) 0.25 MG TABLETS PO SCH ×2 (13:17→21:48)
[2022-04-20] MEDS: CARBIDOPA W LEVODOPA 25/100mg TABLET PO SCH ×2 (13:17→21:49)
[2022-04-20 17:00] VITALS: BP 137/67
[2022-04-20 22:00] VITALS: BP_SYST 126; BP_SYST 141; BP_DIAS 73; BP_DIAS 92
[2022-04-21 05:00] VITALS: BP 128/95
[2022-04-21] MEDS: CARBIDOPA W LEVODOPA 25/100mg TABLET PO SCH (05:07)
[2022-04-21] MEDS: Ropinirole Hydrochloride (Ropinirole Hcl) 0.25 MG TABLETS PO SCH ×3 (05:16→22:00)
[2022-04-21 05:47] LABS: Basophils # (auto) 0 10 ^3/uL (0-0.2); Basophils % (auto) 0.5 % (0.0-2.0); Eosinophils # (auto) 0.1 10 ^3/uL (0-0.8); Hematocrit 31.8 % (36.0-46.0); Hemoglobin 10.3 g/dL (12.2-16.2); Lymphocytes # (auto) 2.1 10 ^3/uL (0.4-5.4); Lymphocytes % (auto) 37.3 % (10.0-50.0); Mean Corpuscular Hgb Conc. 32.5 g/dL (32.0-36.0); Mean Corpuscular Volume 98.4 fL (80.0-100.0); Monocytes # (auto) 0.7 10 ^3/uL (0-1.3); Monocytes % (auto) 11.6 % (0.0-12.0); Neutrophils # (auto) 2.8 10 ^3/uL (1.6-8.6); Neutrophils % (auto) 48.6 % (37.0-80.0); Nucleated Red Blood Cells % 0.2 %; Red Blood Cells 3.23 10^6/uL (4.0-5.20); White Blood Cell 5.7 10^3/uL (4.4-10.8)
[2022-04-21 06:00] LABS: Calcium 8.7 mg/dL (8.5-10.1); Potassium 4.4 mmol/L (3.5-5.1)
[2022-04-21 06:02] LABS: BUN/Creatinine Ratio 35.1
[2022-04-21 06:09] LABS: Red Cell Distribution Width 22.6 % (11.8-14.3)
[2022-04-21 08:00] VITALS: BP 115/72
[2022-04-21] MEDS ORDERED: LEVOTHYROXINE SODIUM 100 MCG TAB PO SCH (10:00)
[2022-04-21] MEDS ORDERED: FUROSEMIDE 40 MG TAB PEG SCH (10:00)
[2022-04-21] MEDS ORDERED: FUROSEMIDE 20 MG TAB PO SCH (10:00)
[2022-04-21] MEDS: OXYBUTYNIN CHL 5 MG TAB PEG SCH (10:00)
[2022-04-21] MEDS: LINACLOTIDE BASE PO SCH (10:00)
[2022-04-21] MEDS ORDERED: ASPirin-EC 81 mg tab PO SCH (10:00)
[2022-04-21] MEDS ORDERED: PANTOPRAZOLE 40 MG TAB PO SCH (10:00)
[2022-04-21] MEDS: OXYBUTYNIN CHL 5 MG TAB GT SCH (11:15)
[2022-04-21] MEDS: MEROPENEM 1GM IVPB 100 ML IV SCH ×2 (11:51→21:51)
[2022-04-21 12:00] VITALS: BP 135/74
[2022-04-21] MEDS: Jevity 1.2 Cal/Fiber 1 Liter GT SCH (13:07)
[2022-04-21] MEDS ORDERED: guaiFENesin-DM 100/10mg/5ml SYR PO PRN (14:15)
[2022-04-21] MEDS: CARBIDOPA W LEVODOPA 25/100mg TABLET PEG SCH ×2 (15:43→21:51)
[2022-04-21 16:00] VITALS: BP 128/75
[2022-04-21 22:00] VITALS: BP 124/74
[2022-04-22 05:00] VITALS: BP 100/66
[2022-04-22] MEDS: Ropinirole Hydrochloride (Ropinirole Hcl) 0.25 MG TABLETS PO SCH ×3 (06:00→21:33)
[2022-04-22] MEDS: CARBIDOPA W LEVODOPA 25/100mg TABLET PEG SCH ×3 (06:29→21:09)
[2022-04-22 09:38] VITALS: BP 108/108
[2022-04-22] MEDS ORDERED: CEFEPIME 1GM/ 50ML 50 ML IV SCH (10:00)
[2022-04-22] MEDS ORDERED: LEVOTHYROXINE SODIUM 25 MCG TAB PEG ONE (10:00)
[2022-04-22] MEDS: LINACLOTIDE BASE PO SCH (10:00)
[2022-04-22] MEDS ORDERED: FUROSEMIDE 40 MG TAB PEG SCH (10:00)
[2022-04-22] MEDS: ASPirin 81 mg TAB PEG SCH (10:39)
[2022-04-22] MEDS: FUROSEMIDE 40 MG TAB PEG SCH (10:39)
[2022-04-22] MEDS: OXYBUTYNIN CHL 5 MG TAB PEG SCH (10:40)
[2022-04-22 12:50] VITALS: BP 106/76
[2022-04-22 13:00] VITALS: BP_SYST 103; BP_SYST 119; BP_DIAS 48; BP_DIAS 68
[2022-04-22 16:57] VITALS: BP 114/69
[2022-04-22] MEDS: MEROPENEM 1GM IVPB 100 ML IV SCH (21:09)
[2022-04-22 22:00] VITALS: BP 123/70
[2022-04-22 23:21] LABS: Magnesium 2.2 mg/dL (1.6-2.6); Potassium 4.3 mmol/L (3.5-5.1)
[2022-04-23 05:00] VITALS: BP 121/82
[2022-04-23] MEDS: CARBIDOPA W LEVODOPA 25/100mg TABLET PEG SCH ×2 (06:36→14:00)
[2022-04-23] MEDS: Ropinirole Hydrochloride (Ropinirole Hcl) 0.25 MG TABLETS PO SCH ×2 (06:37→14:00)
[2022-04-23 08:00] VITALS: BP 119/48
[2022-04-23] MEDS: MEROPENEM 1GM IVPB 100 ML IV SCH (09:34)
[2022-04-23] MEDS: OXYBUTYNIN CHL 5 MG TAB PEG SCH (09:36)
[2022-04-23] MEDS: ASPirin 81 mg TAB PEG SCH (09:36)
[2022-04-23] MEDS: FUROSEMIDE 40 MG TAB PEG SCH (09:36)
[2022-04-23] MEDS: LINACLOTIDE BASE PO SCH (09:48)
[2022-04-23 12:00] VITALS: BP 101/56
== END 2022-04-23 14:45 | disposition home health service (06) | DRG 872 ==
LOC: EDUNIT# 16:14 → EDBD 16:14 → ER 16:18 → TELE 19:02 → TELE-CENTR 04-19 20:56
PROVIDERS: ADMIT Nurse Practitioner Family; ATTEND Internal Medicine Geriatric Medicine
DX: A41.9 Sepsis, unspecified organism (principal); E44.0 Moderate protein-calorie malnutrition; E87.1 Hypo-osmolality and hyponatremia; N39.0 Urinary tract infection, site not specified; D62 Acute posthemorrhagic anemia; N17.9 Acute kidney failure, unspecified; F02.80 Dementia in other diseases classified elsewhere, unspecified severity, without behavioral disturbance, psychotic disturbance, mood disturbance, and anxiety; G20 Parkinson's disease; G30.9 Alzheimer's disease, unspecified; I11.0 Hypertensive heart disease with heart failure; I50.9 Heart failure, unspecified; E78.5 Hyperlipidemia, unspecified; E86.0 Dehydration; K21.9 Gastro-esophageal reflux disease without esophagitis; Z96.659 Presence of unspecified artificial knee joint; B96.5 Pseudomonas (aeruginosa) (mallei) (pseudomallei) as the cause of diseases classified elsewhere; Z68.25 Body mass index [BMI] 25.0-25.9, adult; Z79.82 Long term (current) use of aspirin; Z79.899 Other long term (current) drug therapy; Z82.49 Family history of ischemic heart disease and other diseases of the circulatory system; Z87.440 Personal history of urinary (tract) infections; Z90.710 Acquired absence of both cervix and uterus; Z93.1 Gastrostomy status; N13.9 Obstructive and reflux uropathy, unspecified
CPT/HCPCS: 36415; 70450; 71045; 76775; 80048; 80053; 81001; 82962; 83605; 83735; 83880; 84132; 84484; 85007; 85025; 85027; 87040; 87086; 87088; 87186; 87426; 96365; 96375; C9113; G0378; J0696; J2185